=== PATIENT | male | born 1990 | race Two or more races ===

== ENCOUNTER 2024-07-09 15:08 | Inpatient (IN) | payer OTHER ==
[~2024-07-09] VITALS: Ht 175.3 cm; Wt 68.2 kg
[2024-07-09] MEDS: SODIUM CHLORIDE 0.9% 1,000 ML IV ONE (16:23)
[2024-07-09 16:29] LABS: BASOPHILS % (AUTO) 0.8 % (0.0-2.0); EOSINOPHILS % (AUTO) 0.2 % (1.0-6.0); HEMOGLOBIN 15.8 g/dL (13.5-17.5); LYMPHOCYTES # (AUTO) 0.8 K/uL (1.0-4.8); LYMPHOCYTES % (AUTO) 20.6 % (22.0-44.0); MEAN CORPUSCULAR HEMOGLOBIN 28.9 pg (26.0-34.0); MEAN CORPUSCULAR HGB CONC 33.7 G/dL (31.0-37.0); MEAN CORPUSCULAR VOLUME 86 fL (80-100); MONOCYTES # (AUTO) 0.2 K/uL (0.1-1.0); MONOCYTES % (AUTO) 5.9 % (2.0-9.0); NEUTROPHILS # (AUTO) 2.7 K/uL (1.8-7.7); NEUTROPHILS % (AUTO) 72.5 % (40.0-70.0); PLATELET COUNT (AUTO) 235 K/uL (150-450); RED BLOOD CELL COUNT(AUTO) 5.48 MIL/uL (4.50-5.90); RED CELL DISTRIBUTION WIDTH 12.8 % (11.5-14.5); WHITE BLOOD COUNT (AUTO) 3.7 K/uL (4.5-11.0)
[2024-07-09 16:40] LABS: B-TYPE NATRIURETIC PEPTIDE < 5 pg/mL (0-100)
[2024-07-09 16:44] LABS: TROPONIN I-HIGH SENSITIVITY 11 ng/L (<76)
[2024-07-09 16:46] LABS: ANION GAP 20 mmol/L (8-16); CALCIUM, TOTAL 8.6 mg/dL (8.8-10.5); CARBON DIOXIDE 18 mmol/L (22-29); CHLORIDE 99 mmol/L (98-107); CREATININE 1.04 mg/dL (0.60-1.30); GLOMERULAR FILTR. RATE CALC > 60 mL/min (>60); GLUCOSE,RANDOM 72 mg/dL (70-110); POTASSIUM 3.9 mmol/L (3.5-5.1); SODIUM SERUM 137 mmol/L (136-145); UREA NITROGEN, BLOOD 14 mg/dL (7-18)
[2024-07-09 16:52] LABS: ALANINE AMINOTRANSFERASE 16 U/L (12-78); ALBUMIN 4.2 g/dL (3.4-5.0); ALKALINE PHOSPHATASE 69 U/L (46-116); ASPARTATE AMINOTRANSFERASE 12 U/L (15-37); BILIRUBIN,TOTAL 1.3 mg/dL (0.1-1.0); LIPASE 48 U/L (16-77); PHOSPHORUS 2.8 mg/dL (2.5-4.9); TOTAL PROTEIN, SERUM 7.6 g/dL (6.4-8.2)
[2024-07-09] MEDS: MAGNESIUM SULFATE 1 GM in DEXTROSE 5%-WATER 50 ML IV ONE (18:15)
[2024-07-09] MEDS ORDERED: ONDANSETRON HCL 4 MG/2 ML VIAL IVP PRN (19:00)
[2024-07-09] MEDS ORDERED: MAGNESIUM HYDROXIDE SUSPENSION 30 ML UDCUP PO PRN (19:00)
[2024-07-09] MEDS ORDERED: ZOLPIDEM TARTRATE 5 MG TABLET PO PRN (19:00)
[2024-07-09] MEDS ORDERED: BISACODYL 10 MG RECTAL RECTAL SUPPOSITORY PR PRN (19:00)
[2024-07-09] MEDS: DOCUSATE SODIUM 100 MG CAPSULE PO SCH (20:35)
[2024-07-09 21:42] VITALS: BP 121/79; PULSE 79; RESP 18; TEMP 97.5; O2SAT 100
[2024-07-09] MEDS: ACETAMINOPHEN 325 MG TABLET PO PRN (21:47)
[2024-07-10] MEDS: HEPARIN SODIUM,PORCINE 5,000 UNITS/ML VIAL SQ SCH (00:54)
[2024-07-10 06:34] LABS: APPEARANCE,URINE CLEAR (CLEAR); BILIRUBIN,URINE NEGATIVE (NEGATIVE); COLOR,URINE YELLOW (YELLOW); GLUCOSE, URINE (UA) NEGATIVE (NEGATIVE); KETONES,URINE =>150 mg/dL (NEGATIVE); LEUKOCYTE ESTERASE ,URINE NEGATIVE (NEGATIVE); NITRATE,URINE NEGATIVE (NEGATIVE); OCCULT BLOOD,URINE NEGATIVE (NEGATIVE); PH,URINE 6.5 (5.0-8.0); PROTEIN,URINE 30-70 mg/dL (NEGATIVE); SPECIFIC GRAVITIY, URINE 1.029 (1.003-1.030)
[2024-07-10 08:00] VITALS: BP 114/67; PULSE 62; RESP 18; TEMP 97.7; O2SAT 99
[2024-07-10] MEDS: PANTOPRAZOLE SODIUM 40 MG DR TABLET PO SCH (08:51)
[2024-07-10 19:41] VITALS: BP 117/62; PULSE 70; RESP 18; TEMP 98.3; O2SAT 99
[2024-07-11 05:12] VITALS: BP 126/75; PULSE 74; RESP 18; TEMP 98; O2SAT 99
[2024-07-11 08:01] VITALS: BP 116/74; PULSE 71; RESP 18; TEMP 98.6; O2SAT 99
[2024-07-11] MEDS: DEXTROSE 5%-0.45% SODIUM CHL 1,000 ML IV SCH (11:02)
[2024-07-11 19:47] VITALS: BP 102/60; PULSE 71; RESP 18; TEMP 97.3; O2SAT 100
[2024-07-12 04:31] VITALS: BP 108/68; PULSE 60; RESP 18; TEMP 97.4; O2SAT 100
[2024-07-12 08:36] VITALS: BP 110/60; PULSE 62; RESP 18; TEMP 97.3; O2SAT 98
== END 2024-07-12 11:40 | DRG 563 ==
LOC: EMS 15:08 → EDH 18:57 → 6S 21:30
PROVIDERS: ADMIT Internal Medicine; ATTEND Internal Medicine
DX: S46.811A Strain of other muscles, fascia and tendons at shoulder and upper arm level, right arm, initial encounter (principal); R45.851 Suicidal ideations; F94.0 Selective mutism; T73.0XXA Starvation, initial encounter; R62.7 Adult failure to thrive; Z68.22 Body mass index [BMI] 22.0-22.9, adult; X58.XXXA Exposure to other specified factors, initial encounter; F32.9 Major depressive disorder, single episode, unspecified; H91.91 Unspecified hearing loss, right ear; F43.12 Post-traumatic stress disorder, chronic; W18.39XA Other fall on same level, initial encounter; Y93.89 Activity, other specified; Y92.89 Other specified places as the place of occurrence of the external cause; Y99.8 Other external cause status
CPT/HCPCS: 70450; 72125; 80048; 80076; 81003; 83690; 83735; 83880; 84100; 84484; 85025; 93005; 99285; J1644; J3475; J7060